=== PATIENT | female | born 1985 | race Caucasian/White ===

== ENCOUNTER 2019-09-29 12:42 | Emergency (ER) | payer SELFPAY ==
--- NOTE | 2019-09-29 13:08 | ED.PDOC ---
History of Present Illness - General Chief Complaint: Cardiovascular Problem Stated Complaint: Palpitations Time Seen by Provider: 09/29/19 13:00 Source: patient Exam Limitations: no limitations - History of Present Illness Initial Comments: 34-year-old female without significant past medical history presenting for intermittent palpitations that have been ongoing for several months, but she states that become more frequent and occurring multiple times daily over the past week. She describes it as "skipping a beat followed by pounding heartbeat". She states she said several episodes today. She has not followed up with her primary care doctor or any other physician the past several months. She denies any recent alcohol or drug use. She is a smoker. She does have a h istory of a hysterectomy and is on estradiol. No recent surgeries, no recent travel, no recent hospitalizations. She denies any shortness of breath or syncope. She denies any recent leg swelling. She denies any recent illness/URI symptoms. She does report some associated anterior chest pain with deep breathing, no recent cough or hemoptysis. Worsening Factors: nothing Associated Symptoms: chest pain, shortness of breath Allergies/Adverse Reactions: Allergies NO KNOWN ALLERGY Allergy (Verified 09/29/19 13:14) Home Medications: Ambulatory Orders Buprenorphine HCl [Buprenorphine Hydrochlori] 8 mg SL DAILY 09/29/19 Estradiol 0.1 mg TD WKLY 09/29/19 Ibuprofen [Motrin] 400 mg PO Q6H PRN #20 tab 09/29/19 Review of Systems - Review of Systems Constitutional: Denies: chills, fever, malaise EENTM: Denies: ear pain, nose congestion, throat pain Respiratory: Denies: cough, orthopnea, short of breath, wheezing Cardiology: States: chest pain, palpitations. Denies: edema, syncope Gastrointestinal/Abdominal: Denies: diarrhea, nausea, vomiting Genitourinary: Denies: dysuria, hematuria Musculoskeletal: Denies: back pain, joint pain, muscle pain, neck pain Skin: Denies: dryness, rash Neurological: States: paresthesia - Bilateral feet associated with palpitations. Denies: anxiety, depressed, weakness Endocrine: Denies: intolerance to cold, intolerance to heat, unexplained weight gain, unexplained weight loss All other Systems: Reviewed and Negative Family Medical History - Family History Father Living Status: Hx Family Congestive Heart Failure: Yes Physical Exam - Physical Exam General Appearance: Alert, No apparent distress Ears, Nose, Throat: hearing grossly normal, normal ENT inspection, normal pharynx, other - No thyromegaly or thyroid nodules palpated Neck: non-tender, full range of motion, supple, normal inspection Respiratory: chest non-tender, lungs clear, normal breath sounds, no respiratory distress, no accessory muscle use Cardiovascular/Chest: normal peripheral pulses, no edema, no gallop, no murmur, tachycardia Peripheral Pulses: dorsalis pedis,right: 2+, dorsalis pedis,left: 2+, posterior tibialis,right: 2+, posterior tibialis,left: 2+ Gastrointestinal/Abdominal: non tender, soft, no pulsatile mass Rectal Exam: deferred Back Exam: normal inspection, no CVA tenderness, no vertebral tenderness Extremity: normal range of motion, non-tender, normal inspection, no pedal edema, no calf tenderness 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 Reviewed labs, EKG, x-ray findings. Patient pain-free at this time. Vital signs normal. No further episodes of palpitations in the emergency department. No arrhythmias noted on monitor. Recommended follow-up with PCP in 2 to 3 days to discuss cardiology referral for possible Holter monitor study. Strict warnings given to return the emergency room for fever, worsening pain, shortness of breath, or any other concerns. I reviewed the [employer], she receives regularly scheduled prescriptions for buprenorphine from her primary care doctor. Will defer any further opiate medications. 09/29/19 15:11:Medical decision making: Patient presenting with pleuritic type chest pain, only present when coughing/breathing. She is a smoker and on estrogen replacement, unable to PERC out, but d-dimer is negative. She is otherwise low risk for PE, PE effectively ruled out. Her troponin is negative. Electrolytes are normal. There is no arrhythmias or specific causes for palpitations noted on her EKG or on telemetry. No indication for admission at this time. Will discharge home with plan for follow-up with PCP in 3 to 5 days to discuss further work-up, possibly to include cardiology referral, Holter monitor/event monitor study, etc. - Results/Orders Results/Orders: CXR Impression: 1. No active disease in the chest. Electronically signed by: Mayank Wood MD 09/29/2019 1:52 PM 09/29/19 13:12 Sodium Chloride 0.9% (Flush) [Saline Flush Syringe] 10 ml IV PRN PRN EKG Stat Pulse Ox Stat Laboratory Results - last 24 hr 09/29/19 09/29/19 09/29/19 11:30 13:30 13:30 WBC RBC Hgb Hct MCV MCH MCHC RDW Plt Count MPV Absolute Neuts (auto) Absolute Lymphs (auto) Absolute Monos (auto) Absolute Eos (auto) Absolute Basos (auto) Neutrophils % Lymphocytes % Monocytes % Eosinophils % Basophils % D-Dimer, Quantitative Sodium 139 Potassium 3.8 Chloride 104 Carbon Dioxide 28 Anion Gap 10.8 L BUN 19 H Creatinine 0.60 BUN/Creatinine Ratio 31.7 H Random Glucose 94 Serum Osmolality 279.5 Calcium 9.5 Phosphorus 3.3 Magnesium 1.9 Troponin I < 0.02 09/29/19 09/29/19 13:30 13:33 WBC 9.0 RBC 4.65 Hgb 13.8 Hct 41.5 MCV 89.4 MCH 29.8 MCHC 33.3 RDW 13.4 Plt Count 238 MPV 8.8 Absolute Neuts (auto) 5.80 Absolute Lymphs (auto) 2.50 Absolute Monos (auto) 0.70 Absolute Eos (auto) 0.10 Absolute Basos (auto) 0.00 Neutrophils % 64.1 Lymphocytes % 27.3 Monocytes % 7.4 Eosinophils % 1.0 Basophils % 0.2 D-Dimer, Quantitative < 131 L Sodium Potassium Chloride Carbon Dioxide Anion Gap BUN Creatinine BUN/Creatinine Ratio Random Glucose Serum Osmolality Calcium Phosphorus Magnesium Troponin I - EKG/XRAY/CT Comments: EKG interpreted 12:51 PM. NSR, 91, nl axis, nl interval, no acute ischemia XRAY: chest - No acute process, no infiltrate, no pneumothorax Departure - Departure Clinical Impression: Intermittent palpitations Chest pain Qualifiers: Chest pain type: chest pain on breathing Qualified Code(s): R07.1 - Chest pain on breathing Disposition: Discharge to Home or Self Care Condition: Good Departure Forms: ED Discharge - Pt. Copy, Patient Portal Self Enrollment Instructions: DI for Chest Pain, Palpitations (DC) Referrals: KONSTANTIN GIANG [Primary Care Provider] - 1-5 Days (To discuss outpatient Holter monitor versus event monitor) Prescriptions: Ibuprofen [Motrin] 400 mg PO Q6H PRN #20 tab PRN Reason: Pain Home Medications: Ambulatory Orders Buprenorphine HCl [Buprenorphine Hydrochlori] 8 mg SL DAILY 09/29/19 Estradiol 0.1 mg TD WKLY 09/29/19 Ibuprofen [Motrin] 400 mg PO Q6H PRN #20 tab 09/29/19
[2019-09-29] MEDS ORDERED: ASPIRIN TABLET 325 MG TAB PO ONE (13:12)
[2019-09-29] MEDS ORDERED: SODIUM CHLORIDE 0.9% (FLUSH) 10 ML SYG IV PRN (13:12)
[2019-09-29] MEDS ORDERED: ONDANSETRON INJ 4 MG/2 ML VIAL IV ONE (13:12)
--- NOTE | 2019-09-29 13:53 | RAD ---
: 1985. Technique: Portable AP chest x-ray. Comparison: None. Clinical history: Chest pain. Heart size: Normal. Lungs: No acute consolidation. Pleura: No pleural effusion. No pneumothorax. Mediastinum and trupti: Unremarkable. Skeletal: Unremarkable. Support tubings: None. Impression: 1. No active disease in the chest. Electronically signed by: Mayank Wood MD 09/29/2019 1:52 PM [facility]
[2019-09-29 15:18] VITALS: BP 100/69; TEMP 98; O2SAT 93
== END 2019-09-29 15:10 | disposition home or self-care (01) ==
LOC: ER 12:42
DX: R00.2 Palpitations (principal); R07.1 Chest pain on breathing; R20.2 Paresthesia of skin; F17.200 Nicotine dependence, unspecified, uncomplicated; Z79.899 Other long term (current) drug therapy